=== PATIENT | male | born 1995 | race Caucasian/White ===

== ENCOUNTER 2017-05-08 05:27 | Emergency (ER) | payer OTHER ==
[2017-05-08 07:44] VITALS: BP 99/58
== END 2017-05-08 07:44 | disposition home or self-care (01) ==
LOC: ED 05:27
DX: F10.129 Alcohol abuse with intoxication, unspecified (principal); F12.90 Cannabis use, unspecified, uncomplicated; S60.511A Abrasion of right hand, initial encounter; R55 Syncope and collapse; Y04.0XXA Assault by unarmed brawl or fight, initial encounter; Y93.89 Activity, other specified; Y92.89 Other specified places as the place of occurrence of the external cause; Y99.8 Other external cause status
CPT/HCPCS: 90715; J1885; J2405; J3411; J3475; J3490; J7030